=== PATIENT | female | born 1935 | race Caucasian/White ===

== ENCOUNTER 2017-12-26 11:11 | Outpatient (CLI) | payer MEDICARE, BC ==
[2015-02-24 10:40] VITALS: O2SAT 94
== END 2017-12-26 11:12 | disposition home or self-care (01) | DRG 556 ==
LOC: CONVCARE 11:11
PROVIDERS: ATTEND Orthopaedic Surgery
DX: M25.532 Pain in left wrist (principal); M25.512 Pain in left shoulder; M75.42 Impingement syndrome of left shoulder; M19.042 Primary osteoarthritis, left hand
CPT/HCPCS: 73030

== ENCOUNTER 2018-01-24 08:00 | Day surgery (SDC) | payer MEDICARE, BC ==
[~2018-01-24 08:00] MED LIST: FENTANYL 100MCG/2ML SOL ONE; MIDAZOLAM 2 MG/2 ML SOL ONE
[2018-01-24] MEDS ORDERED: ACETAZOLAMIDE 250 MG PO ONE (08:03)
[2018-01-24] MEDS: TETRACAINE HCL 0.5 % 1 DROP SOL ONE ×3 (08:13→09:22)
[2018-01-24] MEDS: KETOROLAC 0.5% OPTH 60 DROP SOL ONE ×2 (08:14→08:26)
[2018-01-24] MEDS: CYCLOPENTOLATE 1% SOL ONE ×2 (08:14→08:26)
[2018-01-24] MEDS: PHENYLEPHRINE HCL 10% OPHTHAL SOL ONE ×2 (08:14→08:26)
[2018-01-24] MEDS ORDERED: IMPRIMIS ONE (09:15)
[2018-01-24] MEDS ORDERED: BSS 500 ML 500 ML IR ONE (09:16)
[2018-01-24] MEDS ORDERED: LIDOCAINE HCL 1% MPF 30 SOL ONE (09:16)
[2018-01-24] MEDS ORDERED: POVIDONE IODINE 5% SOL ONE (09:16)
[2018-01-24 09:50] VITALS: BP 119/63; PULSE 56; RESP 20; TEMP 96.6; O2SAT 96
== END 2018-01-24 10:00 | disposition home or self-care (01) | DRG 125 ==
LOC: SURG 08:00
PROVIDERS: ATTEND Ophthalmology
DX: H25.89 Other age-related cataract (principal); E11.8 Type 2 diabetes mellitus with unspecified complications
CPT/HCPCS: J2250; J3010; A9270-GY; J2001